=== PATIENT | male | born 1980 | race Caucasian/White ===

== ENCOUNTER 2017-07-12 09:07 | Outpatient (CLI) | payer OTHER ==
--- NOTE | 2017-07-12 13:41 | MRI Report ---
EXAM: RIGHT ANKLE/HINDFOOT MRI WITHOUT CONTRAST EXAM DATE: 07/12/2017 10:25 AM. CLINICAL HISTORY: Right foot and ankle pain. COMPARISON: None. TECHNIQUE: Multiplanar, multisequence T1-weighted and fluid-sensitive sequences of the ankle/hindfoot without contrast. Other: None. FINDINGS: Bones: No fractures. Periarticular marrow edema is in the navicular. An intraosseous ganglion is in t he cuboid. Articular Cartilage: Unremarkable. Ligaments: The anterior and posterior tibiofibular, anterior and posterior talofibular, and calcaneof ibular ligaments are intact. The deep and superficial deltoid and spring ligaments are intact. Anterior Tendons: The tibialis anterior, extensor hallucis longus, and extensor digitorum longus tend ons are unremarkable. Medial Tendons: The tibialis posterior, flexor digitorum longus, and flexor hallucis longus tendons a re unremarkable. Lateral Tendons: There is mild tendinosis of the peroneal tendons. Achilles Tendon: The Achilles tendon is unremarkable. Musculature: No edema or fatty atrophy. Other: No effusions. The contents of the sinus tarsi and tarsal tunnel are unremarkable. No plantar f asciitis. The subcutaneous tissues are unremarkable. IMPRESSION: Mild peroneal tendinosis. [facility] MUSCULOSKELETAL RADIOLOGY SECTION Referring Provider Line: [phone] SITE ID: [id number]
== END 2017-07-12 09:08 | disposition home or self-care (01) ==
LOC: DI 09:07
PROVIDERS: ATTEND Student in an Organized Health Care Education/Training Program
DX: M67.873 Other specified disorders of tendon, right ankle and foot (principal)

== ENCOUNTER 2019-03-20 12:16 | Emergency (ER) | payer OTHER ==
[2019-03-20 12:56] LABS: BASOPHILS # (AUTO) 0.1 10^3/uL (0.0-0.1); BASOPHILS % (AUTO) 0.4 %; EOSINOPHILS # (AUTO) 0.2 10^3/uL (0.0-0.7); EOSINOPHILS % (AUTO) 0.9 %; HGB - HEMOGLOBIN 16.5 g/dL (14.0-18.0); LYMPHOCYTES # (AUTO) 2.7 10^3/uL (1.5-3.5); LYMPHOCYTES % (AUTO) 17.1 %; MEAN CORPUSCULAR HEMOGLOBIN 30.1 pg (27.0-31.0); MEAN CORPUSCULAR HGB CONC 34.5 g/dL (32.0-36.0); MEAN CORPUSCULAR VOLUME 87.1 fL (80.0-94.0); MEAN PLATELET VOLUME 9.2 fL (7.4-11.4); MONOCYTES # (AUTO) 0.6 10^3/uL (0.0-1.0); MONOCYTES % (AUTO) 3.7 %; NEUTROPHILS # (AUTO) 12.3 10^3/uL (1.5-6.6); NEUTROPHILS % (AUTO) 77.5 %; PLT - PLATELET COUNT 246 10^3/uL (130-450); RED BLOOD COUNT 5.49 10^6/uL (4.70-6.10); RED CELL DISTRIBUTION WIDTH 12.8 % (12.0-15.0); WHITE BLOOD COUNT 15.9 x10^3/uL (4.8-10.8)
[2019-03-20 13:11] LABS: ALBUMIN 4.8 g/dL (3.2-5.5); ALBUMIN/GLOBULIN RATIO 1.3 (1.0-2.2); BILIRUBIN,TOTAL 1.1 mg/dL (0.2-1.0); CALCIUM 9.4 mg/dL (8.5-10.3); TOTAL PROTEIN 8.4 g/dL (6.7-8.2)
--- NOTE | 2019-03-20 13:40 | ED Physician Documentation ---
PD HPI ABD PAIN - Stated complaint Stated Complaint: ABD PX - Chief complaint Chief Complaint: Abd Pain - History obtained from History obtained from: Patient - History of Present Illness Timing - onset: Other (38-year-old gentleman, healthy, active duty in the [employer] with no history of abdominal surgeries presents with migratory and waxing and waning abdominal pain for the last 3 days. It started in the left upper quadrant and epigastrium and now is in the left lower quadrant and right lower quadrant and right flank. He denies significant nausea, but may have been mildly queasy at some point. Denies changes in bowel movements or urinary complaints except for frequency. No hematuria.) Review of Systems Ten Systems: 10 systems reviewed and negative Constitutional: denies: Fever, Chills GI: reports: Abdominal Pain, Nausea. denies: Vomiting, Constipation, Diarrhea : denies: Dysuria, Frequency PD PAST MEDICAL HISTORY - Allergies Allergies/Adverse Reactions: Allergies Allergy/AdvReac Type Severity Reaction Status Date / Time No Known Drug Allergies Allergy Verified 03/20/19 12:22 PD ED PE NORMAL - Vitals Vital signs reviewed: Yes - General General: Alert and oriented X 3, No acute distress - HEENT HEENT: PERRL, EOMI - Neck Neck: Supple, no meningeal sign, No bony TTP - Cardiac Cardiac: RRR, No murmur - Respiratory Respiratory: No respiratory distress, Clear bilaterally - Abdomen Abdomen: Other (Slightly diminished bowel tones, soft with moderate lower abdominal and mid right abdominal tenderness. He does have tenderness at McBurney's point but it does not seem focal. Negative Rovsing sign.) - Back Back: No CVA TTP, No spinal TTP - Derm Derm: Normal color, Warm and dry - Extremities Extremities: No edema, No calf tenderness / cord - Neuro Neuro: Alert and oriented X 3, Normal speech Results - Vitals Vitals: Vital Signs - 24 hr 03/20/19 03/20/19 12:20 13:51 Temperature 36.2 C L Heart Rate 96 72 Respiratory 15 16 Rate Blood Pressure 160/96 H 138/89 H O2 Saturation 97 96 Oxygen O2 Source Room air - Labs Labs: Laboratory Tests 03/20/19 03/20/19 03/20/19 12:48 12:48 13:45 WBC 15.9 H RBC 5.49 Hgb 16.5 Hct 47.8 MCV 87.1 MCH 30.1 MCHC 34.5 RDW 12.8 Plt Count 246 MPV 9.2 Neut # (Auto) 12.3 H Lymph # (Auto) 2.7 Pine # (Auto) 0.6 Eos # (Auto) 0.2 Baso # (Auto) 0.1 Absolute Nucleated RBC 0.00 Nucleated RBC % 0.0 Sodium 135 Potassium 4.2 Chloride 101 Carbon Dioxide 23 Anion Gap 11.0 BUN 13 Creatinine 1.0 Estimated GFR (MDRD) 84 L Glucose 118 H Calcium 9.4 Total Bilirubin 1.1 H AST 28 ALT 38 Alkaline Phosphatase 51 Total Protein 8.4 H Albumin 4.8 Globulin 3.6 Albumin/Globulin Ratio 1.3 Lipase 31 Urine Color YELLOW Urine Clarity CLEAR Urine pH 7.0 Ur Specific [place] <=1.005 Urine Protein NEGATIVE Urine Glucose (UA) NEGATIVE Urine Ketones NEGATIVE Urine Occult Blood NEGATIVE Urine Nitrite NEGATIVE Urine Bilirubin NEGATIVE Urine Urobilinogen 0.2 (NORMAL) Ur Leukocyte Esterase NEGATIVE Ur Microscopic Review NOT INDICATED Urine Culture Comments NOT INDICATED - Rads (name of study) CT A/P Radiology: EMP read contemporaneously (normal) PD MEDICAL DECISION MAKING - ED course ED course: 38-year-old gentleman with migratory abdominal pain, could be consistent with, but would be somewhat atypical for, appendicitis. White count is elevated, but no findings on CT. Watchful waiting was advised. He declined prescription pain medication. Departure - Departure Disposition: 01 Home, Self Care Clinical Impression: Abdominal pain Qualifiers: Abdominal location: lower abdomen, unspecified Qualified Code(s): R10.30 - Lower abdominal pain, unspecified Condition: Good Record reviewed to determine appropriate education?: Yes Instructions: ED Abdominal Pain Unkn Cause Comments: Return anytime if worse or if new symptoms develop, or in 24 hours if not better, Your blood pressure was elevated today on check into the emergency department. This does not mean that you have hypertension, it is a common phenomenon to come to the emergency department and have elevated blood pressure. I recommend that you see your primary care physician within the week to have it rechecked when you are feeling better.
[2019-03-20] MEDS ORDERED: IOVERSOL 320 100 ML VIAL IVP ONE ×2 (14:02→19:23)
[2019-03-20 14:03] LABS: BILIRUBIN,URINE NEGATIVE (NEGATIVE); GLUCOSE, URINE (UA) NEGATIVE (NEGATIVE); KETONES,URINE (UA) NEGATIVE (NEGATIVE); LEUKOCYTE ESTERASE, URINE NEGATIVE (NEGATIVE); NITRITE,URINE NEGATIVE (NEGATIVE); OCCULT BLOOD,URINE NEGATIVE (NEGATIVE); PROTEIN,URINE NEGATIVE (NEGATIVE); UROBILINOGEN,URINE 0.2 (NORMAL) E.U./dL (NORMAL)
[2019-03-20 14:04] LABS: CLARITY,URINE CLEAR (CLEAR)
--- NOTE | 2019-03-20 14:37 | CT Report ---
Reason: IV only, RLQ pain Procedure Date: 03/20/2019 Accession Number: [id number] / [id number] Procedure: CT - Abdomen/Pelvis W CPT Code: FULL RESULT: EXAM: CT ABDOMEN AND PELVIS EXAM DATE: 03/20/2019 02:13 PM. CLINICAL HISTORY: IV only, right lower quadrant pain. COMPARISONS: None. TECHNIQUE: Routine helical CT imaging was performed through the abdomen and pelvis. IV contrast: OPTI 320 100ML. Enteric contrast: No. Reconstructions: Coronal and sagittal. In accordance with CT protocol optimization, one or more of the following dose reduction techniques were utilized for this exam: automated exposure control, adjustment of mA and/or KV based on patient size, or use of iterative reconstructive technique. FINDINGS: Lung Bases: Unremarkable. Liver: Normal. No masses. Gallbladder/Bile Ducts: Unremarkable. Spleen: Normal. Pancreas: Normal. Adrenal Glands: Normal. Kidneys: Normal. No masses or hydronephrosis. Peritoneal Cavity/Bowel: Normal. No free fluid, free air or adenopathy. No masses or acute inflammatory process. The appendix is well visualized and normal. Cecum is mildly high riding in this patient and the appendix is located in the right upper to mid abdomen. Pelvic Organs: Normal. The bladder and visualized pelvic organs are within normal limits. Vasculature: No aneurysms or other significant abnormality. Bones: No significant abnormality. Other: None. IMPRESSION: Normal abdomen and pelvis CT. Normal appendix as described. No finding to explain right lower quadrant pain. [facility]
[2019-03-20 15:09] VITALS: BP 122/84
== END 2019-03-20 15:10 | disposition home or self-care (01) ==
LOC: ED 12:16
DX: R10.31 Right lower quadrant pain (principal); R10.32 Left lower quadrant pain; D72.829 Elevated white blood cell count, unspecified; R03.0 Elevated blood-pressure reading, without diagnosis of hypertension
CPT/HCPCS: 36415; 74177; 80053; 81003; 83690; 85025; 99283; 99284; Q9967; 81001; 87086

== ENCOUNTER 2020-02-02 11:14 | Emergency (ER) | payer OTHER ==
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
[2020-02-02] MEDS ORDERED: IBUPROFEN 600 MG TABLET PO STA (12:16)
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
[2020-02-02 13:42] VITALS: BP 142/79
== END 2020-02-02 13:40 | disposition home or self-care (01) ==
LOC: ED 11:14
DX: S16.1XXA Strain of muscle, fascia and tendon at neck level, initial encounter (principal); S20.212A Contusion of left front wall of thorax, initial encounter; V47.1XXA Car passenger injured in collision with fixed or stationary object in nontraffic accident, initial encounter; Y92.410 Unspecified street and highway as the place of occurrence of the external cause; F17.200 Nicotine dependence, unspecified, uncomplicated
CPT/HCPCS: 71046; 72040; 99284; A9270

== ENCOUNTER 2020-04-07 13:52 | Outpatient (CLI) | payer OTHER ==
[2020-04-07 15:21] VITALS: BP 134/70
--- NOTE | 2020-04-07 15:21 | SLEEP CARE CONSULTATION ---
Information from patient questionnaire entered by Vianey Camacho. I have reviewed and concur with the information entered by Vianey Camacho. This document represents the service I personally performed and the decisions made by me, Penny Brizuela ARNP. History of Present Illness Service Date and Time: 04/07/2020 1352 Reason for Visit: New patient Chief Complaint: reports: Unrefreshed sleep, Snoring, Excessive daytime sleepiness, Observed pauses in breathing, Frequent awakenings at night, Other (re-up supplies) Usual bedtime: 2100 on weekdays; 2200 on weekends Time it takes to fall asleep: 1 hour Snores at night: Yes Observed to quit breathing while asleep: Yes Sleeps alone due to snoring: No Number of times waking at night: 3-4 Reasons for waking at night: reports: Choking, Snoring, Pain, Bathroom Toss, Turn, or Twitch while sleeping: Yes Recalls having dreams: Yes Usually gets out of bed at: 0630; 0700 on weekend Feels refreshed in the morning: No Morning headache: Yes (1-2 times a week; lasts about an hour) Sleepy or fatigued during the day: Yes Ever fallen asleep while driving: No Takes day naps: Yes (on weekends for 15-20 minutes) Dreams during day naps: Yes Prior sleep studies: Yes Year and Where: 03/2017 Type of Sleep Study: Polysomnography ([facility]) Additional HPI information: MAYCO MILLIGAN who was previously diagnosed in 2017 to have obstructive sleep apnea-hypopnea syndrome comes in to establish care and restart on CPAP machine. Patient was being followed by [facility] but they are no longer in business. He also has been getting DME supplies from [facility] and would like to change to a different DME since he cannot get supplies as needed. He has been getting sinus infections and some ear pressure/feeling of being bl ocked in his left ear. The issue with his ear was present before getting on the CPAP but he feels it is a little worse with use of the CPAP machine. He has not been using the CPAP for about a year. He currently has a referral to see an ENT for further evaluation of his ear problems. - Parasomnia Symptoms Ever been unable to move upon waking from sleep: No Walks in sleep: No Talks in sleep: No Ever acted out dreams in sleep: No Ever felt weak in the knees when startled or emotional: No Bothered by creepy, crawly, restless sensations in legs: No Problems with memory or concentration: Yes (sometimes) Subjective Initial [place] Sleepiness Scale score: 10 (in 2019) Past Medical History Past Medical History: reports: GERD, Other (ear blockage). denies: Hypertension, Congestive Heart Failure, Diabetes, Stroke, Coronary Heart Disease, Insulin resistance, Arrythmia, Hypothyroidism, Anemia, Anxiety, Impotence (a), Depression, Mood disorder, Attention deficit Social History The patient's occupation is active . Patient is and lives in [place]. Have you smoked in the past 12 months: Yes Years of smokin Quit date: 09/2019 Alcohol use: Yes Alcohol amount and frequency: 1-2 beers, monthly Caffeine use: No Family History Family history of sleep disordered breathing: No Allergies and Home Medications Drug allergies reviewed: Yes (NKDA) Home medication list reviewed: Yes Allergy and home medication list: omeprazole 40 mg daily Benedryl for allergies prn Review of Systems Weight gain over past 5 years: 10 Weight loss over past 5 years: 10 Cardiovascular: denies: high blood pressure, palpitations, chest pain, irregular heart rate or pulse, leg or foot swelling Respiratory: denies: shortness of breath Gastrointestinal: reports: heartburn, abdominal pain. denies: difficulty swallowing Urinary: reports: other (blood in urine). denies: impotence Neurological: reports: headaches. denies: seizure, head trauma, speech dysfunction, gait or balance problems Psychiatric: denies: anxiety, depression, mood disorder, claustrophobia Ear/Nose/Throat: reports: nasal congestion, sinus problems, dry mouth/throat, wisdom teeth removed. denies: nose bleeds, injury to nose, tonsillectomy Endocrine: denies: thyroid disease Musculoskeletal: denies: muscle pain or cramping, mobility problems Immunologic: reports: sneezing, allergies to food or environment (seasonal) Physical Exam Blood Pressure: 134/70 Cuff size: long Heart Rate: 76 O2 Saturation: 96 Height: 6 ft 1 in Weight: 236 lb Body Mass Index: 31.1 BMI Classification: Obese Neck circumference: 16 (inches) HEENT: No craniofacial malformation Nostrils: patent to airflow Turbinates: normal Septum: midline Mouth and throat: normal Soft palate: normal Hard palate: normal Uvula: normal Uvula visualization: 100% Mallampati Class I Tongue: normal in size Tonsils: small Chin and jaw: normal size and position Neck: normal w/o lymphadenopathy or thyromegaly Heart: regular rate and rhythm Lungs: clear bilaterally Impression and Plan 1. Obstructive Sleep Apnea-Hypopnea Syndrome, as previously diagnosed. He has not been using the CPAP for the last year as he felt his ear pressure/clogging is worse when using the machine. He continues to have a history of loud snoring, observed cessation of breath while asleep, gasping or choking in sleep, morning headache, frequent awakening during the night, unrefreshed sleep, cognitive impairment, and excessive daytime sleepiness. We will have to order a new PSG to confirm the diagnosis and to assess severity. I discussed with the patient details of the sleep studies and after some discussion, obtained agreement to proceed. The pathophysiology of obstructive sleep apnea-hypopnea syndrome was discussed with the patient and health risks of cardiovascular and cerebrovascular disease if not treated. Risks of drowsy driving discussed in detail and patient advised to avoid long distance driving and to order puller at the first sign of drowsiness. Patient agreed to plan. * Schedule polysomnography +- manual CPAP titration study. * Avoid long distance driving or driving when feeling sleepy. * Avoid alcohol, sedative and muscle relaxant around bedtime. * Attempt to lose weight. * Review instructions provided by trained office staff on how to prepare for the sleep study. * Return for follow-up after sleep study completed. Visit Type: In Office Time Spent with Patient (minutes): 34 Provider Statement: I spent 100% of the Face to Face Visit with the patient with greater than 50% spent counseling the patient and coordination of care.
== END 2020-04-07 13:53 | disposition home or self-care (01) ==
LOC: SC 13:52
PROVIDERS: ATTEND Nurse Practitioner Family
DX: G47.33 Obstructive sleep apnea (adult) (pediatric) (principal); E66.9 Obesity, unspecified; Z68.31 Body mass index [BMI] 31.0-31.9, adult
CPT/HCPCS: 99204; 99212

== ENCOUNTER 2020-05-13 20:29 | Outpatient (CLI) | payer OTHER | END 2020-05-13 20:30 | disposition home or self-care (01) | LOC: SC 20:29 | PROVIDERS: ATTEND Nurse Practitioner Family | DX: G47.33 Obstructive sleep apnea (adult) (pediatric) (principal); E66.3 Overweight; Z68.31 Body mass index [BMI] 31.0-31.9, adult | CPT/HCPCS: 95810 ==

== ENCOUNTER → 2020-05-20 | Outpatient (CLI) | payer OTHER ==
--- NOTE | 2020-05-20 11:55 | SLEEP CARE CONSULTATION ---
Information from patient questionnaire entered by Vianey Camacho. I have reviewed and concur with the information entered by Vianey Camacho. This document represents the service I personally performed and the decisions made by , Penny Brizuela ARNP. History of Present Illness Service Date and Time: 05/20/2020 1140 Initial [place] Sleepiness Scale score: 10 Current [place] Sleepiness Scale score: 9 Additional HPI information: MAYCO MILLIGAN returns for Telehealth video follow up and results of the recently performed polysomnography. His study showed moderate obstructive sleep apnea with an average AHI of 18.0 and jimi oxygen saturation of 88%. His supine AHI 31.5 and non-supine 9.72. I explained the pathophysiology behind obstructive sleep apnea. We then spent quite a bit of time discussing different treatment options. For mild obstructive sleep apnea, surgery and oral appliance are alternatives to nasal CPAP therapy but in moderate or severe cases, nasal CPAP is the most effective and reliable treatment. After some discussion, the patient opted to go with the nasal CPAP therapy. Nasal autoCPAP set at 4-15 cmH20 will be ordered with rationale explained. A manual titration study will be ordered if unable to find optimal pressure with office adjustments. I explained how CPAP machine works and what to expect when using the machine. Using CPAP every night in order to get used to it was emphasized. Patient advised to put CPAP mask on before getting into bed so as not to fall asleep without CPAP. To assist acclimation to CPAP use, it could also be used for a short time during day while reading or watching TV. The patient was instructed to call the CPAP supplier to discuss any mechanical problem that may occur. If snoring or perceives is not getting enough air or too much air from the machine, notify this office. Patient counseled not drink alcohol less than 4 hours before bedtime as it can increase snoring and apnea. Patient was cautioned about risks of drowsy driving until sleepiness symptoms resolve. Sleep Study - Results Type of Sleep Study: Polysomnography Prior sleep studies: Yes Year and Where: 04/2020 [facility], 03/2017 Polysomnography/Home Sleep Study results: IMPRESSION: The quality of the study is good. The patient had slightly reduced sleep efficiency due to prolonged awakening in the middle of the night. The sleep architecture was abnormal for sleep fragmentation and reduced amount of time spent in slow wave sleep (N3). Respiratory monitoring showed moderate obstructive sleep apneahypopnea (AHI = 18.0) associated with frequent arousals, oxyhemoglobin desaturation and mild hypoxia (jimi oxygen saturation of 88%). The respiratory events occurred mainly during supine sleep (supine AHI = 31.5; nonsupine = 9.72). Snore was light in intensity. There was no significant periodic leg movement of sleep. Cardiac rhythm was normal sinus rhythm without significant arrhythmia. No abnormal behavior (parasomnia) observed during the night. Allergies and Home Medications Drug allergies reviewed: Yes (NKDA) Home medication list reviewed: Yes (no changes) Review of Systems Review of systems same as previous: Yes (no changes) Physical Exam Vital signs obtained and entered by: Telehealth visit, no vital obtained Height: 6 ft 1 in Impression and Plan 1. Obstructive Sleep Apnea-Hypopnea Syndrome, moderate, with lowest oxygen saturation of 88%. Patient has previous diagnosis of sleep apnea but stopped using it due to sinus infections. He was encouraged to have study done again and restart treatment. Obviously this is the cause of the patients symptoms of unrefreshed sleep, and excessive daytime sleepiness. Positive pressure therapy could benefit his acid reflux symptoms from GERD. He would like to restart CPAP therapy. I advised him to use a saline nasal rinse and increase humidity setting for nasal congestion/inflammation/swelling that can be caused by use of the CPAP machine. He voiced understanding and agreement with plan. As mentioned above, the patient will be started on nasal autoCPAP therapy with pressure set at 4-15 cmH2O. A manual titration study will be completed if unable to find optimal treatment pressure with office adjustments. Compliance guidelines also reviewed. A copy of compliance guidelines will be given for reference at check out. Because the apnea is more severe supine, I instructed to avoid sleeping supine using pillow positioning until able to start CPAP use. * Nasal auto CPAP therapy, pressure at 4-15 cm H2O. * Attempt to lose weight. * Avoid alcohol consumption near bedtime. * Avoid supine sleep until using CPAP. * The patient is again cautioned about driving until sleepiness completely resolves. * Return one month after CPAP obtained. I will assess response to therapy and compliance at that time. Counseling Topics: Sleeping position, Weight loss health impact Visit Type: Telehealth Video Video Type: Doximity Patient Location: car Location of Provider: Home Patient agrees and consents to this telehealth visit type: Yes Patient agrees to have their insurance billed: Yes Time Spent with Patient (minutes): 18 Provider Statement: I spent 100% of the Telehealth Video Call with the patient with greater than 50% spent counseling the patient and coordination of care.
== END ==
LOC: SC 11:40
PROVIDERS: ATTEND Nurse Practitioner Family
DX: G47.33 Obstructive sleep apnea (adult) (pediatric) (principal)

== ENCOUNTER 2021-09-13 15:18 | Emergency (ER) | payer OTHER ==
[2021-09-13 15:31] VITALS: BP 150/83
--- NOTE | 2021-09-13 15:50 | ED Physician Documentation ---
History of Present Illness - Stated complaint Stated Complaint: LT LEG PX - Chief complaint Chief Complaint: Ext Problem - History obtained from History obtained from: Patient - History of Present Illness Timing: Today Pain level max: 1 Pain level now: 0 - Additonal information Additional information: 41-year-old male states that he was at home today when a varicose vein ruptured and began to bleed. He has been unable to control the bleeding. Came in for evaluation. He also states he has had mild dysuria for the past 10 days. History of UTI in the past. Feels similar. No fevers. No chills. No back pain. No nausea or vomiting. No abdominal pain. Not on blood thinners. No STI exposure Review of Systems Ten Systems: 10 systems reviewed and negative Constitutional: denies: Fever, Chills Cardiac: denies: Chest pain / pressure, Palpitations Respiratory: denies: Cough GI: denies: Abdominal Pain, Vomiting, Diarrhea : reports: Dysuria, Frequency Skin: denies: Rash Musculoskeletal: denies: Neck pain, Back pain Neurologic: denies: Headache PD PAST MEDICAL HISTORY - Past Medical History Cardiovascular: None Respiratory: None Neuro: None Endocrine/Autoimmune: None GI: None : None HEENT: None Psych: None Musculoskeletal: None Derm: None - Past Surgical History Past Surgical History: No - Allergies Allergies/Adverse Reactions: Allergies Allergy/AdvReac Type Severity Reaction Status Date / Time No Known Drug Allergies Allergy Verified 09/13/21 15:26 - Social History Does the pt smoke?: Yes Smoking Status: Current every day smoker Does the pt drink ETOH?: Yes Does the pt have substance abuse?: No - Immunizations Immunizations are current?: Yes - POLST Patient has POLST: No PD ED PE NORMAL - Vitals Vital signs reviewed: Yes - General General: Alert and oriented X 3, No acute distress - HEENT HEENT: Moist mucous membranes - Respiratory Respiratory: No respiratory distress - Abdomen Abdomen: Soft, Non tender, Non distended - Back Back: No CVA TTP - Derm Derm: Warm and dry - Extremities Extremities: Other (Left calf, small oozing pinpoint wound. Left medial proximal calf) - Neuro Neuro: Alert and oriented X 3 - Psych Psych: Normal mood, Normal affect Results - Vitals Vitals: Vital Signs - 24 hr 09/13/21 15:27 Temperature 36.4 C L Heart Rate 92 Respiratory 16 Rate Blood Pressure 150/83 H O2 Saturation 97 Oxygen O2 Source Room air - Labs Labs: Laboratory Tests 09/13/21 15:45 Urine Color YELLOW Urine Clarity CLEAR Urine pH 7.0 Ur Specific [place] 1.015 Urine Protein NEGATIVE Urine Glucose (UA) NEGATIVE Urine Ketones NEGATIVE Urine Occult Blood NEGATIVE Urine Nitrite NEGATIVE Urine Bilirubin NEGATIVE Urine Urobilinogen 0.2 (NORMAL) Ur Leukocyte Esterase NEGATIVE Ur Microscopic Review NOT INDICATED Urine Culture Comments NOT INDICATED PD MEDICAL DECISION MAKING - ED course Complexity details: reviewed results, considered differential, d/w patient ED course: The bleeding had resolved. Dermabond was applied to the area. No further bleeding. Negative urinalysis. Uncertain etiology of his dysuria, STI testing was sent. Patient counseled regarding signs and symptoms for which I believe and urgent re-evaluation would be necessary. Patient with good understanding of and agreement to plan and is comfortable going home at this time This document was made in part using voice recognition software. While efforts are made to proofread this document, sound alike and grammatical errors may occur. Departure - Departure Disposition: 01 Home, Self Care Clinical Impression: Dysuria Varicose vein of leg Qualifiers: Varicose vein complication: unspecified Laterality: left Qualified Code(s): I83.92 - Asymptomatic varicose veins of left lower extremity Condition: Good Instructions: ED Dysuria Uncertain Cause, ED Veins Varicose Follow-Up: your,doctor in 1 week [Other] Comments: Your urinalysis does not show any infection today. Return if you worsen. The glue should dissolve on its own. If there is any further bleeding, I would apply pressure dressings you did before and leave for at least 30 minutes. Elevating the leg may also help, standing will increase the pressure in the vein and may cause bleeding to recur.
[2021-09-13 15:55] LABS: BILIRUBIN,URINE NEGATIVE (NEGATIVE); GLUCOSE, URINE (UA) NEGATIVE (NEGATIVE); KETONES,URINE (UA) NEGATIVE (NEGATIVE); LEUKOCYTE ESTERASE, URINE NEGATIVE (NEGATIVE); NITRITE,URINE NEGATIVE (NEGATIVE); OCCULT BLOOD,URINE NEGATIVE (NEGATIVE); PROTEIN,URINE NEGATIVE (NEGATIVE); UROBILINOGEN,URINE 0.2 (NORMAL) E.U./dL (NORMAL)
[2021-09-13 16:05] LABS: CLARITY,URINE CLEAR (CLEAR)
[2021-09-13 19:33] LABS: CHLAMYDIA TRACHOMATIS DNA NEGATIVE (NEGATIVE); NEISSERIA GONORRHOEAE DNA NEGATIVE (NEGATIVE)
== END 2021-09-13 16:22 | disposition home or self-care (01) ==
LOC: ED 15:18
DX: I83.92 Asymptomatic varicose veins of left lower extremity (principal); R30.0 Dysuria; F17.200 Nicotine dependence, unspecified, uncomplicated
CPT/HCPCS: 81001; 81003; 87086; 87491; 87591; 87661; 99282; 99283

== ENCOUNTER 2022-09-26 15:08 | Outpatient (CLI) | payer OTHER ==
--- NOTE | 2022-09-26 16:48 | MRI Report ---
PROCEDURE: KNEE WO - RT INDICATIONS: PATELLOFEMORAL DISORDERS, KNEE PAIN TECHNIQUE: Noncontrast sagittal PD fast spin echo and T2 fast spin echo with fat saturation, sagittal 3-D gradie nt sequence with fat saturation; coronal T1 spin echo and PD fast spin echo with fat saturation, and axial PD fast spin echo with fat saturation through the knee. COMPARISON: None. FINDINGS: Image quality: Excellent. Menisci: There is mild partial detachment of the free edge of the posterior horn medial meniscus. Th e medial and lateral menisci demonstrate otherwise normal morphology and internal signal. The menisc al root ligaments appear intact. Cruciate ligaments: The anterior and posterior cruciate ligaments appear intact. There is moderate T2 signal elevation along the course of the anterior cruciate ligament in a configuration suggestive of myxoid degeneration. Medial structures: The medial collateral ligament appears intact. Visualized portions of the pes ans erinus tendons appear normal. No abnormal bursal fluid. Lateral structures: The lateral collateral ligament, long and short heads of the biceps femoris tend on appear intact. The popliteus tendon appears normal. Iliotibial band appears normal. Anterior structures: The quadriceps and patellar tendons appear intact. There is mild T2 signal pramod vation within the quadriceps and patellar tendons at the patellar insertion sites. Patellar alignment is normal. No femoral trochlear dysplasia or ventral trochlear prominence. No edema in the infrapa tellar fat pad. Bones and cartilage: No bone marrow contusions or fractures. There is moderate subchondral degenerat vijaya marrow edema within the central aspect of the tibial plateau with several subchondral cysts. Mild tricompartmental periareolar osteophyte formation. Severe articular cartilage loss diffusely overlie s the weightbearing aspects of the medial femoral condyle and medial tibial plateau. Joint space: There is a small knee joint effusion, a small ganglion cyst along the popliteus, and a small Smith's cyst. Normal appearing synovial plicae are incidentally noted. IMPRESSION: 1. Detachment of the free edge of the posterior horn medial meniscus. 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 3. Quadriceps and patellar tendinopathy. 4. Tricompartmental osteoarthritis with associated articular cartilage loss. 5. Knee joint effusion and Smith's cyst. Reviewed by: Tinaa Wood MD on 09/26/2022 4:46 PM PST Approved by: Tiana Wood MD on 09/26/2022 4:46 PM PST Station ID: [id number]
== END 2022-09-26 15:09 | disposition home or self-care (01) ==
LOC: DI 15:08
PROVIDERS: ATTEND Student in an Organized Health Care Education/Training Program
DX: M67.863 Other specified disorders of tendon, right knee (principal); M17.11 Unilateral primary osteoarthritis, right knee; M25.461 Effusion, right knee; M71.21 Synovial cyst of popliteal space [Baker], right knee

== ENCOUNTER 2022-12-05 12:48 | Outpatient (CLI) | payer OTHER ==
--- NOTE | 2022-12-05 13:32 | SLEEP CARE CONSULTATION ---
Information from patient questionnaire entered by [employer] [employer]. I have reviewed and concur with the information entered by [employer]. This document represents the service I personally performed and the decisions made by , Penny Brizuela ARNP. History of Present Illness Service Date and Time: 12/05/2022 1248 Previous diagnosis: Moderate, Obstructive Sleep Apnea-Hypopnea Syndrome AHI: 18 (in 2019) Reason for follow up: annual (LAST SEEN 04/2020) Equipment type: CPAP (Resmed Airsense 10; SD CARD NEEDED) Mask style: Full face Mask brand: Respironics (Dreamwear, medium cushion) Backup mask available: No (will keep old mask when replaced) Last cushion change: 2 months Prior sleep studies: Yes [facility] and [facility] Type of Sleep Study: Polysomnography HPI additional information: MAYCO MILLIGAN was diagnosed to have moderate, AHI 18, obstructive sleep apnea- hypopnea syndrome and returned today for CPAP therapy annual follow-up. Sleep Study - Results Type of Sleep Study: Polysomnography Prior sleep studies: Yes [facility] CP[facility] Compliance Data - Data Reviewed with Patient Average duration of nightly device use: 2.1 hours Compliance rate %: 4 (81/180 days used) Current pressure setting (cmH2O): 4-15 Humidity settin Average residual AHI: 2.7 Central apnea: 0.4 Average large leak: 8 l/min Compliance data discussion: 30 days: 08/28 with 4 hours or more and 03/28 days used at 2.3 hours average. 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 denies: aerophagia, air blowing in eyes, mask leak noise, epistaxis Observed to snore while using device: No Current pressure setting perceived as: comfortable On therapy, patient: reports: sleeping better, awakening more refreshed, being more awake and alert during the day, more rested overall. denies: drowsiness while driving Initial [place] Sleepiness Scale score: 10 Current [place] Sleepiness Scale score: 7 Allergies and Home Medications Known drug allergies: No Drug allergies reviewed: Yes Home medication list reviewed: Yes (no changes) Allergy and home medication list: Allergies No Known Drug Allergies Allergy Medications: Pantoprazole 40 mg daily Lidocaine patch eye drops for dry eyes Review of Systems Review of systems same as previous: No (GERD; Varicose veins; arthritis in right knee) Physical Exam Vital signs obtained and entered by: Penny RIVAS Blood Pressure: 122/74 (left arm) Cuff size: long Heart Rate: 75 O2 Saturation: 97 Height: 6 ft 1 in Weight: 238 lb (with boots/fatigues on) Body Mass Index: 31.4 BMI Classification: Obese Impression and Plan 1. Obstructive Sleep Apnea-Hypopnea Syndrome, moderated, with poor treatment compliance and good apnea control. On CPAP therapy, the patient has better sleep quality and is more rested overall. 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 I was able to get some information off of his RemMed Airsense 10 to see that his compliance is down. He has only used it 8 days in last month and 1 day was at least four hour. He needs to be set up for more supplies and a new device. I will have his try and reach compliance in a month and then we can set him up with supplies and a new CPAP. He voiced understanding and agreement with plan of care. Patient's apnea severity and rationale for treatment to reduce apnea, improve sleep quality and reduce cardiovascular and cerebrovascular events was reviewed. I also reviewed the benefit of consistent device use of CPAP for gastric reflux. 2. Obesity, unspecified. Currently patients BMI is 31.4. Obesity increases the risk of apnea, CPAP pressure requirements and overall health risks especially cardiovascular and diabetes. Thus patient is advised to lose weight. * Change auto CPAP pressure to 4-6 cmH2O * Notify me if snoring with mask or feeling that the pressure is too much or too little * Attempt to lose weight * Call this office if any problems using CPAP * Return for follow up in 1-2 months, or sooner if concerns arise Counseling Topics: Spare mask, Weight loss health impact Visit Type: In Office Time Spent with Patient (minutes): 23 Provider Statement: I spent 100% of the Face to Face Visit with the patient with greater than 50% spent counseling the patient and coordination of care.
[2022-12-05 13:37] VITALS: BP 122/74
== END 2022-12-05 12:49 | disposition home or self-care (01) ==
LOC: SC 12:48
PROVIDERS: ATTEND Nurse Practitioner Family
DX: G47.33 Obstructive sleep apnea (adult) (pediatric) (principal); E66.9 Obesity, unspecified; Z68.31 Body mass index [BMI] 31.0-31.9, adult
CPT/HCPCS: 99212; 99213

== ENCOUNTER 2023-01-19 12:50 | Outpatient (CLI) | payer OTHER ==
--- NOTE | 2023-01-19 13:12 | SLEEP CARE CONSULTATION ---
Information from patient questionnaire entered by [facility]. I have reviewed and concur with the information entered by [employer] [facility]. This document represents the service I personally performed and the decisions made by me, Penny Brizuela ARNP. History of Present Illness Service Date and Time: 01/19/2023 1250 Previous diagnosis: Moderate, Obstructive Sleep Apnea-Hypopnea Syndrome AHI: 18 (in 2019) Reason for follow up: one month (F/U ) Equipment type: CPAP (Resmed Airsense 10; SD CARD NEEDED) Equipment obtained from: [employer] (just started with last week) Mask style: Full face Mask brand: Respironics (Dreamwear) Backup mask available: Yes (old mask) Last cushion change: 3 weeks Prior sleep studies: Yes Year and Where: 04/2020 [facility], 03/2017 [facility] Type of Sleep Study: Polysomnography HPI additional information: MAYCO MILLIGAN was diagnosed to have moderate, AHI 18, obstructive sleep apnea- hypopnea syndrome and returned today for CPAP therapy one month follow-up. Sleep Study - Results Type of Sleep Study: Polysomnography Prior sleep studies: Yes Year and Where: 04/2020 [facility], 03/2017 CPAP Compliance Data - Data Reviewed with Patient Average duration of nightly device use: 6 hours 14 minutes Compliance rate %: 100 (30/ days used) Current pressure setting (cmH2O): 4-6 Average residual AHI: 0.8 Central apnea: 0.4 Obstructive apnea: 0.2 Average large leak: 2.6 lpm Subjective Patient concerns: reports: mask discomfort (comes off face at night; some soreness under nose last couple days). denies: aerophagia, air blowing in eyes, mask leak noise, condensation in mask/hose, nasal congestion (has some sometimes but is not because of CPAP), dry mouth, nose, throat, epistaxis Observed to snore while using device: No Current pressure setting perceived as: comfortable On therapy, patient: reports: sleeping better, awakening more refreshed, being more awake and alert during the day, more rested overall. denies: drowsiness while driving Initial [place] Sleepiness Scale score: 10 Current [place] Sleepiness Scale score: 10 (01/19/23) Allergies and Home Medications Known drug allergies: No Drug allergies reviewed: Yes Home medication list reviewed: Yes (no changes) Allergy and home medication list: Allergies No Known Drug Allergies Allergy (Verified 01/18/23 15:08) Review of Systems Review of systems same as previous: Yes (no changes) Physical Exam Vital signs obtained and entered by: ITA Duffy MA Blood Pressure: 112/66 (LEFT ARM) Cuff size: regular Heart Rate: 74 O2 Saturation: 96 Height: 6 ft 1 in Weight: 234 lb 12.8 oz Body Mass Index: 30.9 BMI Classification: Obese Impression and Plan 1. Obstructive Sleep Apnea-Hypopnea Syndrome, moderate, with good treatment compliance and good apnea control. On CPAP therapy, the patient has better sleep quality and is more rested overall. He is happy with his new DME supplier. He had a meeting with them and is all set up with supplies. He has brought up his compliance to 100% and is comfortable with using his CPAP. I will have him follow up in 6 months. Patient's apnea severity and rationale for treatment to reduce apnea, improve sleep quality and reduce cardiovascular and cerebrovascular events was reviewed. I also reviewed the benefit of consistent device use of CPAP for gastric reflux. 2. Obesity, unspecified. Currently patients BMI is 30.9. Obesity increases the risk of apnea, CPAP pressure requirements and overall health risks especially cardiovascular and diabetes. Thus patient is advised to lose weight. * Continue auto CPAP pressure at 4-6 cmH2O * Notify me if snoring with mask or feeling that the pressure is too much or too little * Attempt to lose weight * Call this office if any problems using CPAP * Return for follow up in 6 months, or sooner if concerns arise Counseling Topics: Spare mask, Weight loss health impact Visit Type: In Office Time Spent with Patient (minutes): 13 Provider Statement: I spent 100% of the Face to Face Visit with the patient with greater than 50% spent counseling the patient and coordination of care.
[2023-01-19 13:13] VITALS: BP 112/66
== END 2023-01-19 12:51 | disposition home or self-care (01) ==
LOC: SC 12:50
PROVIDERS: ATTEND Nurse Practitioner Family
DX: G47.33 Obstructive sleep apnea (adult) (pediatric) (principal); E66.9 Obesity, unspecified; Z68.30 Body mass index [BMI] 30.0-30.9, adult
CPT/HCPCS: 99212

== ENCOUNTER 2024-02-04 11:45 | Outpatient (CLI) | payer OTHER ==
--- NOTE | 2024-02-04 16:15 | XRAY Report ---
PROCEDURE: Lumbar Spine 2-3V INDICATIONS: LOW BACK PAIN, ACUTE TECHNIQUE: 2 views of the lumbar spine were acquired. COMPARISON: None. FINDINGS: Surgical change: None. Bones: 5 [id number] vertebrae are present. There is normal bony alignment. No vertebral body co mpression fractures. No suspicious bony lesions. Soft tissues: Overlying bowel gas pattern is unremarkable. IMPRESSION: No acute osseous abnormality seen Reviewed by: Ricci Wood MD on 02/04/2024 4:14 PM PDT Approved by: Ricci Wood MD on 02/04/2024 4:14 PM PDT Station ID: [id number]
== END 2024-02-04 12:00 | disposition home or self-care (01) ==
LOC: DI.N 11:45
PROVIDERS: ATTEND Family Medicine
DX: M54.59 Other low back pain (principal)

== ENCOUNTER 2024-02-18 08:10 | Outpatient (CLI) | payer OTHER ==
--- NOTE | 2024-02-19 10:05 | MRI Report ---
PROCEDURE: Knee RT WO INDICATIONS: R KNEE PAIN TECHNIQUE: Noncontrast sagittal PD fast spin echo and T2 fast spin echo with fat saturation, sagittal 3-D gradie nt sequence with fat saturation; coronal T1 spin echo and PD fast spin echo with fat saturation, and axial PD fast spin echo with fat saturation through the knee. COMPARISON: 09/26/2022. FINDINGS: Image quality: Excellent. Menisci: Signal abnormality involving posterior horn of medial meniscus is seen extending to superior articulating surface concerning for subtle oblique tear. The lateral meniscus is intact. The menisca l root ligaments appear intact. Cruciate ligaments: The anterior cruciate ligament is markedly thickened with intrasubstance T2 hype rintense signal. The posterior cruciate ligament is intact. Medial structures: The medial collateral ligament appears mildly thickened at its femoral insertion. Visualized portions of the pes anserinus tendons appear normal. No abnormal bursal fluid. Lateral structures: The lateral collateral ligament, long and short heads of the biceps femoris tend on appear intact. The popliteus tendon appears normal. Iliotibial band appears normal. Anterior structures: Distal quadriceps tendinosis at its superior patella insertion is seen. Proximal patella tendinosis is also seen. Nonspecific mild subcutaneous soft tissue edema along anterior aspe ct of patella and patella tendon. Patellar alignment is normal. No femoral trochlear dysplasia or ve ntral trochlear prominence. No edema in the infrapatellar fat pad. Bones and cartilage: No bone marrow contusions or fractures. Mild tricompartmental osteoarthritis an d low-grade chondromalacia is seen. Joint space: There is small knee joint fluid. There is a tiny popliteal cyst. Normal appearing synov ial plicae are incidentally noted. IMPRESSION: 1. Suggestion of subtle oblique tear involving posterior horn of medial meniscus extending to superio r articulating surface. The lateral meniscus is intact. 2. Myxoid degenerative changes and low-grade intrasubstance partial thickness tear involving ACL. No ACL rupture. The PCL is intact. 3. Low-grade MCL sprain. 4. Distal quadriceps tendinosis and proximal patella tendinosis. Mild soft tissue swelling along ante rior aspect of patella and patella tendon. 5. Mild tricompartmental osteoarthritis and low-grade chondromalacia. No fracture or dislocation. Sma ll joint effusion and tiny popliteal cyst. No loose bodies. Reviewed by: Jaime Watts MD on 02/19/2024 10:04 AM PDT Approved by: Jaime Watts MD on 02/19/2024 10:04 AM PDT Station ID: [id number]
== END 2024-02-18 08:11 | disposition home or self-care (01) ==
LOC: DI 08:10
PROVIDERS: ATTEND Nurse Practitioner Family
DX: S83.511A Sprain of anterior cruciate ligament of right knee, initial encounter (principal); S83.411A Sprain of medial collateral ligament of right knee, initial encounter; M67.863 Other specified disorders of tendon, right knee; M17.11 Unilateral primary osteoarthritis, right knee; M94.261 Chondromalacia, right knee; M25.461 Effusion, right knee; M71.21 Synovial cyst of popliteal space [Baker], right knee